=== PATIENT | female | born 1945 | race Caucasian/White ===

== ENCOUNTER 2016-10-29 20:02 | Inpatient (IN) | payer MEDICARE, OTHER ==
[~2016-10-29] VITALS: Ht 172.7 cm; Wt 96.6 kg
--- NOTE | 2016-10-29 19:55 | ED.REPORT ---
HPI-Chest Pain 40 and Over Date of Service Oct 29, 2016 ED Provider: Naun Hendrickson MD History of Present Illness: Patient accepted in transfer from [facility] as STEMI Patient is a 71 year old female with a history of hypertension who presents to the ED via EMS complaining of chest pain onset around 1830. Associated symptoms include pain that radiates into her back, between her shoulder blades and palpitations. Per EMS, the patient was given Heparin, ASA and nitro prior to arrival to the ED, which the patient reports took her pain from an 8/10 down to a 5/10. She denies leg swelling, shortness of breath, diaphoresis or nausea. The patient originally went to [facility] when the pain started and after having an abnormal EKG was brought to the ED for a possible STEMI. Nursing Notes Stated Complaint: STEMI Nursing Notes Reviewed: Yes ([employer], meds not reconciled) Allergies: Coded Allergies: Penicillins (Verified Allergy, Unknown, 10/29/16) Sulfa (Sulfonamide Antibiotics) (Verified Allergy, Unknown, 10/29/16) erythromycin base (Verified Allergy, Unknown, 10/29/16) General Time Seen by MD: 19:53 Chief Complaint Chest pain Hx Obtained From: Patient, EMS Arrived By: Ambulance Sudden in Onset?: Yes Onset Occurred: 1 - 4 hours ago Symptom Duration: Since onset Location: : Chest left Quality: Painful, Pressure Radiation: : Back (describes pain as stabbing) Severity: Current: Pain level 5 out of 10 Severity: Maximum: Pain level 8 out of 10 Similar Sx Previous: No Past Medical History Past Medical History h/u PUD years ago Reports: Hypertension, Denies: Coronary artery disease, Diabetes mellitus, Hyperlipidemia Past Surgical History Cholecystectomy Hysterectomy Appendectomy Bilateral cataract surgeries Smoking History Never Smoker Social History recently retired Alcohol Use: Denies alcohol use Other Social History: Ambulatory Status Independent Review of Systems Constitutional: Denies: Chills, Fever Respiratory: Denies: Dyspnea on exertion, Non-productive cough, Shortness of breath, Wheezing Cardiovascular: Reports: Chest pain, Palpitations GI: Denies: Nausea Musculoskeletal: Reports: Back pain, Denies: Extremity swelling Skin: Denies Diaphoresis, Denies Itching, Denies Rash Neurologic: Denies: Numbness, Weakness Complete sys rev & neg: except as marked. Physical Exam Initial Vital Signs Vital Signs (First) Date Time Temp Pulse Resp B/P Pulse Ox O2 Delivery O2 Flow Rate FiO2 10/29/16 20:09 112 16 172/95 96 Room Air 10/29/16 20:30 2 Initial VS: Reviewed General/Constitutional: Awake, Alert Respiratory / Chest: Atraumatic, Breath sounds NL, Breath sounds = bilat, No respiratory distress Cardiovascular: Regular rhythm, Heart sounds NL Heart Rate / Rhythm: Positive: Tachycardia Abdomen: Atraumatic, Soft, Non-tender Lower Extremity / Pelvis / MS: Atraumatic, Inspection NL, No edema good dp pulses Skin: Atraumatic, Color NL, No rash, Warm, Dry Neurologic: Oriented X3, Speech NL, No motor deficits, No sensory deficits Psychiatric: Affect NL, Mood NL Head / Eyes: Atraumatic, Normocephalic, PERRL, EOMI Upper Extremity / MS: Atraumatic, Inspection NL Interpretation & Diagnostics Interpretation & Diagnostics: Labs from [facility]: CBC WBC 8.1, hematocrit 40.3, platelet count of 225 Sodium 141, potassium low at 2.9, chloride 103, CO2 28, BUN 16, creatinine 0.9, glucose 176, total bili 0.6, AST 26, ALT 36, troponin #1 negative at less than 0.04 Lipase 61 albumin 4.7 Lab Results Interpretation Result Diagram: 10/29/162053 Test 10/29/16 20:54 D-Dimer < 0.50mg/L FEU (<0.50) Potassium Level 3.7mEq/L (3.5-5.2) Magnesium Level 1.9mg/dL (1.6-2.6) Troponin T 0.312ug/L (0.0-0.011) Lab Results Interpretation: Repeat potassium 3.7, up from 2.9 Repeat troponin now elevated and positive ECG Interpretation ECG Interpretation: Faxed EKG from [facility]: Sinus tachycardia 113, nose borderline ST segment elevation in V1, there is ST segment elevation in V2 and possibly V3 , it is difficult to tell if there is changes in leads 3-overall to an equivocal EKG, but this clinical presentation is concerning, prior EKG available for comparison Interpreted by: ED physician Repeat ECG: Repeat ECG ch from prior (improved) X-Ray Chest Interpretation Chest Xray Interpretation: IMPRESSION: No acute disease. Scattered scarring/atelectasis Dictated by: Ruddy Briggs M.D. on 10/29/2016 at 21:27 Approved by: Ruddy Briggs M.D. on 10/29/2016 at 21:28 View: Portable, 1 view Interpretation / Wet Read by: Interpret - Radiologist CT Chest Interpretation IMPRESSION: Complex cystic versus solid right renal lesion, suspicious for early renal cell carcinoma until proven otherwise. Recommend nonemergent urological consultation, and continued surveillance with CT. A dedicated renal protocol contrast-enhanced CT or MRI could be performed in the nonemergent setting 7 mm left adrenal nodule which is too small to characterize. This should also be followed up with continued CT surveillance, and if reaches 1 cm in size consider dedicated adrenal protocol MRI for further assessment. Indeterminate left upper lobe pulmonary nodule. Recommend followup with noncontrast chest CT in 6 months (based on size criteria) No evidence of aortic dissection Hepatic steatosis. No acute abnormality. Bibasilar scarring/atelectasis. Dictated by: Ruddy Briggs M.D. on 10/29/2016 at 21:06 Approved by: Ruddy Briggs M.D. on 10/29/2016 at 21:17 Interpretation / Wet Read by: Interpret - Radiologist Re-Eval/Medical Decision Med Decision/Clinical Course This is a 71-year-old female transferred from [facility] with a concern for ST segment elevation SD. Cardiology and the Communicable Disease Specialist activated prior to patient arrival. On arrival the patient reports sudden onset of substernal chest pressure and shortness of breath 5 minutes before going to the ED,'s rated an 8 out of 10, trace nausea and no diaphoresis. She has no prior history of coronary disease, but does have a history of hypertension was significantly hypertensive on arrival to the ED. She had EKG that was suspicious, but not definitive for ST segment elevation, received aspirin, nitroglycerin, heparin and was transferred. She received morphine and additional nitroglycerin en route, but arrives still having ongoing chest discomfort. She is still significantly hypertensive. Overall the patient's well. She does report some radiation into the back, increasing the possibility of a dissection as potential pathology. Her repeat EKG here does not reveal a definitive ST segment elevation SD, but cardiology was present at the bedside and examiner. She received additional nitroglycerin , pain medicine, and was started on nitro drip-but continued to have ongoing pain. A CT angiogram for dissection was obtained and was negative for dissection or clear causative etiology, but an incidental cystic mass in the right kidney was noted with renal CA in the differential and an outpatient workup may need to be considered for this. However the patient continued ongoing substernal chest pressure, and the presentation clinically remains concerning for possible cardiac etiology. With the patient's ongoing symptoms, the patient being taken to the Communicable Disease Specialist for further management and evaluation. Labs from the outside hospital were also notable for hypokalemia, the patient is on a diuretic-and was given potassium supplementation in the department. After being taken to the medical laboratory technicians, the patient's repeat troponin is returned and is markedly positive, suggesting NSTEMI Source of Hx: Old records, EMS Time of Eval: 20:58 Re-Evaluation/Progress Note: Discussed plan for admit. Patient understands and agrees to plan. All questions were addressed. Consultation #1: Referral / Consult Name: Chris Taylor MD Consulted With: Cardiology Call Returned at: 19:40 Printed Products Assembler: Will see patient Note: Case discussed based on Johnniey ED report, medical laboratory technicians activated RN CARDIAC Consultation #2: Referral / Consult Name: Chris Taylor MD Consulted With: Cardiology Call Returned at: 20:56 Printed Products Assembler: Will see patient, Agrees with eval, Agrees with plan, Requested medical laboratory technicians, Accepts admit Differential Diagnosis: Positive: Chest pain, acute, Negative: Dysrhythmia, Gun shot wound chest, Peptic ulcer disease, Pericarditis, Pneumomediastinum, Pneumonia, Pneumothorax, Pulmonary edema, Pulmonary embolism Counseled Regarding: Diagnosis, Lab results, Need for admission Discharge & Departure Primary Impression: Chest pain Chest pain type: unspecified Qualified Code: R07.9 - Chest pain, unspecified Additional Impressions: Hypokalemia Hypertension Hypertension type: unspecified secondary hypertension Qualified Code: I15.9 - Secondary hypertension, unspecified Renal mass NSTEMI (non-ST elevated myocardial infarction) Disposition: ADMITTED TO HOSPITAL Discharge Condition All VS Reviewed: Yes Condition: Stable Referrals: NOPCP (PCP) Crit Care Except Billable Proc Time Spent: 30-74 minutes Services Performed: Patient management by me, Time spent at bedside, Reviewing test results, Reviewing imaging, Discussing patient care, Documentation in record Scribe Attestation Portions of this note were transcribed by Addis Mclaughlin. IDr. Hendrickson personally performed the history, physical exam and medical decision-making; I reviewed and confirmed the accuracy of the information in the transcribed note. Signed by: Addis Sawyer, 10/29/16 Naun Hendrickson MD Oct 29, 2016 19:55 Heidy Mclaughlin Oct 29, 2016 20:20
[~2016-10-29 20:02] MED LIST: Heparin 1,000 Unit/mL 10 mL Inj ONE; Heparin 1,000 Units/500 mL NS Premix IV ONE; Heparin 10,000 Unit/1,000 mL NS Premix IV ONE; Nitroglycerin 50,000 mcg/250 mL D5W Premix IV ONE
[2016-10-29 20:09] VITALS: BP 172/95; PULSE 112; RESP 16; O2SAT 96
[2016-10-29] MEDS: Nitroglycerin 50 mg/250 mL D5W 50,000 MCG in IV Premix 1 EACH IV SCH (20:17)
[2016-10-29] MEDS ORDERED: Nitroglycerin 50,000 mcg/250 mL D5W Premix IV ONE (20:19)
[2016-10-29] MEDS ORDERED: HYDROmorphone 0.5 mg/0.5 mL iSecure Syringe IVPUSH ONE (20:20)
[2016-10-29 20:30] VITALS: BP 151/93; PULSE 108; RESP 19; O2SAT 96
[2016-10-29 20:59] VITALS: BP 131/98; PULSE 105; RESP 20; O2SAT 95
[2016-10-29] MEDS: Potassium Chloride 20 mEq/15 mL 15mL Oral Soln TUBE SCH ×2 (21:03→22:30)
[2016-10-29] MEDS ORDERED: fentaNYL-PF 50 mCg/mL 2 mL Inj ONE (21:12)
[2016-10-29 21:14] VITALS: BP 131/98; PULSE 105; RESP 20; O2SAT 95
--- NOTE | 2016-10-29 21:19 | DRSVH ---
PROCEDURE: CT ANG CHEST/ABD W/WO CONTRAST ([id number]) INDICATIONS: Dissection TECHNIQUE: Precontrast 5 mm thick sections acquired from the lung apices to the iliac crests. After the adminis tration of intravenous contrast, 3 mm thick sections again acquired from the lung apices to the iliac crests. 3-dimensional maximum intensity projection (MIP) oblique sagittal and coronal reformats wer e then acquired, and/or 3-dimensional volume rendering reformats. For radiation dose reduction, the following was used: automated exposure control. COMPARISON: None. FINDINGS: Image quality: Excellent. AORTA: Aorta is within normal limits. No aneurysm or evidence of dissection. No periaortic hemorrhage. CHEST: Lungs and pleura: Scattered scarring/atelectasis predominantly in the lung bases. 5 mm left upper lob e pulmonary nodule seen on image 33 series 9, technically indeterminate. No pleural effusions or pne umothorax. Central and peripheral airways are patent and normal in caliber. Mediastinum: Heart size is normal. No pericardial effusion. No mediastinal or hilar adenopathy by size criteria. Central pulmonary arteries are normal in size. Esophagus is normal in caliber. No h iatal hernias. Bones and chest wall: No axillary adenopathy by size criteria. Thyroid gland negative. No suspicio us bony lesions. No vertebral body compression fractures. ABDOMEN: Vasculature: Celiac trunk and mesenteric arteries are patent. Renal arteries are also patent. Solid organs: Liver and spleen are normal in size. Gallbladder surgically absent. Biliary system i s non dilated. Pancreas enhances normally. There is a nonspecific 7 mm left adrenal nodule on image 101, indeterminate.. There is a 1 cm right renal cortical lesion, which may be solid or complex cysti c in nature Peritoneum and bowel: No free fluid or air. Bowel loops are normal in caliber and wall thickness. Colonic diverticulosis is seen. No evidence of acute diverticulitis. Nodes and vessels: No retroperitoneal or mesenteric adenopathy by size criteria. Inferior vena cava is normal in morphology. Bones: No suspicious bony lesions. No vertebral body compression fractures. L2 and L3 vertebral dami dy lesions with central trabeculations presumably hemangiomas Miscellaneous: No ventral hernias. IMPRESSION: Complex cystic versus solid right renal lesion, suspicious for early renal cell carcinoma until prove n otherwise. Recommend nonemergent urological consultation, and continued surveillance with CT. A ded icated renal protocol contrast-enhanced CT or MRI could be performed in the nonemergent setting 7 mm left adrenal nodule which is too small to characterize. This should also be followed up with con tinued CT surveillance, and if reaches 1 cm in size consider dedicated adrenal protocol MRI for furth er assessment. Indeterminate left upper lobe pulmonary nodule. Recommend followup with noncontrast chest CT in 6 mon ths (based on size criteria) No evidence of aortic dissection Hepatic steatosis. No acute abnormality. Bibasilar scarring/atelectasis. Dictated by: Ruddy Briggs M.D. on 10/29/2016 at 21:06 Approved by: Ruddy Briggs M.D. on 10/29/2016 at 21:17
--- NOTE | 2016-10-29 21:30 | DRSVH ---
PROCEDURE: X-RAY CHEST ONE VIEW, PORTABLE ([id number]) INDICATIONS: CHEST PAIN TECHNIQUE: One view of the chest was acquired. COMPARISON: None. FINDINGS: Surgical changes and devices: None. Lungs and pleura: No pleural effusions or pneumothorax. Lungs are clear. There is diffuse/interstit ial change. Elevation of the right hemidiaphragm Mediastinum: Mediastinal contours appear normal. Heart size is normal. Bones and chest wall: No suspicious bony lesions. Overlying soft tissues appear unremarkable. IMPRESSION: No acute disease. Scattered scarring/atelectasis Dictated by: Ruddy Briggs M.D. on 10/29/2016 at 21:27 Approved by: Ruddy Briggs M.D. on 10/29/2016 at 21:28
[2016-10-29 21:40] LABS: Magnesium 1.9 mg/dL (1.6-2.6)
[2016-10-29 21:41] LABS: TROPONIN T 0.312 ug/L (0.0-0.011)
[2016-10-29] MEDS ORDERED: Heparin 10,000 Unit/1,000 mL NS Premix IV ONE ×2 (21:42→22:59)
[2016-10-29] MEDS ORDERED: Heparin 1,000 Unit/mL 10 mL Inj ONE (22:38)
[2016-10-29] MEDS ORDERED: Eptifibatide 20,000 mCg/10 mL Inj ONE (23:28)
[2016-10-30] VITALS (37 sets, daily range): BP systolic 102–142; BP diastolic 54–95; PULSE 79–101; RESP 11–21; O2SAT 90–96
--- NOTE | 2016-10-30 00:30 | NUR ---
Arrived on the floor around 0030. Integrillin, Nitro gtt and NS infusing. Noted hematoma on right groin as per report. Femstop started on the floor by Assistant Designer crew. Pulses are palpable. Pt c/o bladder spasms. No c/o chest pain/back pain.
[2016-10-30] MEDS ORDERED: 0.9% Sodium Chloride 250 ML IV PRN (00:57)
[2016-10-30] MEDS ORDERED: 0.9% Sodium Chloride 1,000 ML IV PRN (00:57)
[2016-10-30] MEDS ORDERED: Ondansetron 2 mg/mL 2 mL Inj IVPUSH PRN ×2 (01:00→02:05)
--- NOTE | 2016-10-30 01:03 | CS94 ---
[address] [address] DIAGNOSTIC CARDIAC CATHETERIZATION PATIENT: SENG NAVAS : 1945 MR#: [id number] ADMIT: 10/29/2016 JOB ID: [id number] SERVICE DATE: 10/29/2016. PROCEDURE NOTE/CARDIAC CATHETERIZATION LABORATORY: CHEFS: Chris Taylor MD. PROCEDURES: 1. Coronary angiogram, emergent. 2. Left heart catheterization (LHC): Pressure measurement. 3. Percutaneous coronary intervention (PCI): a. Drug-eluting stents (CARMEN) of proximal and mid. INCOMPLETE DICTATION: Dictation ends here.
[2016-10-30 01:38] LABS: APPEARANCE,URINE SLIGHTLY CLOUDY (CLEAR,HAZY); COLOR,URINE RED (YELLOW); OCCULT BLOOD,URINE LARGE (NEGATIVE); UROBILINOGEN,URINE NORMAL (NORMAL)
[2016-10-30] MEDS ORDERED: Polyethylene Glycol (PEG) 17 Gm Powder PO PRN (02:05)
[2016-10-30] MEDS ORDERED: Alum-Mag Hydrox-Simeth 30 mL Suspension PO PRN ×2 (02:05→12:25)
--- NOTE | 2016-10-30 02:59 | NUR ---
Admission Admission done and updated record. Pt oriented to use of call light and policy with understanding noted. Booklet r/t Angioplasty/stents given to pt. Med rec not updated due to pts poor recall at this time. Am nurse made aware of need to update.
--- NOTE | 2016-10-30 03:39 | PCM.HPMED ---
Subjective Date of Service Oct 30, 2016 Primary Provider: Admitting Physician: Chris Taylor MD Primary Care Physician: Nopoumar Attending Physician: Chris Taylor MD Chief Complaint: Chest pain History of Present Illness: Patient is a 71-year-old female with a history of hypertension who presented to [facility] complaining of sudden onset of substernal chest pressure with associated shortness of breath 5 minutes before going to the ED. She described the chest pressure as an 8 out of 10 substernal chest pressure radiating to her back, with some nausea but no diaphoresis. EKG at [facility] did not show definitive elevation and she received aspirin, nitroglycerin, heparin and was transferred transported to [facility] for intervention. She has no prior history of coronary disease. She denies leg swelling, shortness of breath , diaphoresis or nausea. At [facility], CBC was unremarkable, K was 2.9, Cr 0.9, glucose 176, troponin was negative. In the [facility] ED, HR was 112, BP was 172/95, O2 96 on room air. Repeat K was 3.7, repeat troponin was 0.312. EKG showed ST elevation in V1 - V3. CXR was negative. CT chest/abd showed a 7 mm left adrenal nodule, indeterminate left upper lobe pulmonary nodule, no evidence of aortic dissection, hepatic steatosis. She continued to complain of significant ongoing substernal chest pressure during the transfer and in the [facility] ED, and was brought to the cathode ray tube salvage processor. Drug-eluting stents were placed in the proximal and mid LAD. Review of Systems: Comprehensive review of systems conducted and was negative except for the pertinent positives listed above. Allergies Coded Allergies: Sulfa (Sulfonamide Antibiotics) (Verified Allergy, Severe, Hives, 10/30/16) Penicillins (Verified Allergy, Intermediate, Anaphylaxis, 10/30/16) erythromycin base (Verified Allergy, Intermediate, 10/30/16) fatigue soy (Verified Adverse Reaction, Unknown, 10/30/16) Inflammation Uncoded Allergies: Dairy (Adverse Reaction, Unknown, 10/30/16) Diarrhea Home Medications Medications not reconciled PMH Hypertension Hx of PUD years ago Surgical History Cholecystectomy Hysterectomy Appendectomy Bilateral cataract surgeries Family History Mother at 94 of Alzheimer's. Had pacemaker Father had 3 strokes at 94 2 maternal uncles with diabetes mellitus Social History Hx Alcohol Use: No Hx Substance Use: No Smoking Status: Never Smoker Exam Vital Signs Vital Sign - Last Date Time Temp Pulse Resp B/P Pulse Ox O2 Delivery O2 Flow Rate FiO2 10/30/16 00:42 Supplement Oxygen 10/29/16 21:14 105 20 131/98 95 2 Exam General: Alert, Oriented X3, Cooperative, No acute distress Head: Normocephalic, atraumatic. External ears normal. Eyes: PERRLA, EOMI. Anicteric sclerae. Mouth: Mouth normal, Mucous membranes moist/pink Neck: Neck supple with full range of motion. Chest& Lungs: Clear to auscultation bilaterally with no crackles, wheezes, or rhonchi. Cardiovascular: Regular rate/rhythm, Normal S1, Normal S2, No murmurs/rubs/ gallops Abdomen: Non-tender, Non-distended, No masses, Normoactive bowel tones, Soft Musculoskeletal: Normal range of motion Extremities: No cyanosis/clubbing/edema bilaterally. Hematoma at right groin catheter site. Neurological: Grossly neurologically intact. Normal speech Lab and Diagnostics Result Diagram: 10/29/162053 Assessment & Plan Patient is a 71-year-old female with a history of hypertension who presented to [facility] complaining of sudden onset of substernal chest pressure with associated shortness of breath. Admitted for STEMI. Acute ST elevation [place]. Present on admission. - Pt presents with substernal chest pressure, ST elevation in leads V1-3, and elevated troponin. Cath revealed thrombotic lesions in the proximal and mid LAD , which were stented. - Continue Aspirin and Plavix, with Integrilin - Atorvastatin 80 mg qhs - Morphine and Nitro PRN - Echocardiogram in AM - Monitor on telemetry - Monitor I/O and daily standing weights Hypertension, acute on chronic. Present on admission. Improved. - BP 172/95 on admission. Improved to 131/98. - Continue to monitor Hyperglycemia, acute. - Pt has no hx of DM. BG 176 at [facility]. 228 at [facility]. - A1c ordered. - Humalog medium dose correctional scale. Multiple nodular lesions. - CT chest/abd showed right renal lesion suspicious for early renal cell carcinoma, a 7 mm left adrenal nodule, and an indeterminate left upper lobe pulmonary nodule. - Outpatient urology consultation for right renal lesion - Follow up chest/abd CT in 6 months - Med Rec not complete. Reconcile in AM with pharmacy and complete. - Bowel regimen as needed - Antiemetic as needed Patient is admitted under inpatient status with expected length of stay greater than 2 midnights due to severity of presenting symptoms, risk of adverse event, and complexity of treatment plan. Resuscitation Status: CPR: Attempt Resuscitation Attending Statement The patient was seen and examined together with Dr. Kessler on 10/29 and I agree with the history, exam and plan as outlined in the note above. Boy Kessler Oct 30, 2016 01:47 Buster Gamez MD Oct 30, 2016 06:52
[2016-10-30 04:29] LABS: BASOPHILS % (AUTO) 0.1 % (0-3); EOSINOPHILS % (AUTO) 0 % (0-5); MONOCYTES % (AUTO) 4.5 % (4-12); Mean Corpuscular Hemoglobin 28.3 pg (27.0-35.0); Mean Corpuscular Volume 84.4 fL (81-100); Platelet Count 201 bil/L (150-400)
[2016-10-30] MEDS: EPTIFIBATIDE IV SCH ×2 (05:22→17:23)
[2016-10-30] MEDS: [UNRECOGNIZED DRUG - OTHER] IV SCH ×2 (05:22→17:23)
[2016-10-30 05:25] LABS: TROPONIN T 0.609 ug/L (0.0-0.011)
[2016-10-30] MEDS ORDERED: Dextrose 10% 250 ML IV PRN (06:03)
[2016-10-30] MEDS ORDERED: Glucose 40% Oral Gel 15 Gm Tube PO PRN (06:05)
--- NOTE | 2016-10-30 07:49 | NUR ---
Hematoma/PSVT/HR/Anxiety Pt arrived on the floor with known hematoma. animal laboratory helper crew started Femstop during report. Pt c/o bladder spasm/discomfort. Pulses are palpable. Pt denies any chest pain or back pain during admission. Dr Taylor assessed the hematoma and removed Femstop. Manual hold done by staff for 40 mins as ordered by Dr Taylor. Hematoma reduced in size. Right groin site soft to touch. Dressing has some small oozing since new dressing applied. Pulses are 2+. Pt had a 6 sec PSVT. She was laying in bed without any c/o pain or discomfort. Md aware. Telemetry has been SR in 80-90s. Heart rate noted to trend up to low 100s this am. Pt c/o slight discomfort on her back muscular from being bed rest. Morphine 1mg IV given with report of relief. Hr noted to be back down to 90s. Pt reports also having history of anxiety and PTSD and feeling slightly anxious this am. Pt aware of NPO status and bed rest status at this time. Total urinary output this am 863 cc.
[2016-10-30] MEDS: Insulin LISPRO 300 Unit/3 mL Inj SUBQ SCH ×4 (08:00→22:00)
[2016-10-30] MEDS ORDERED: BENA1TAB12 PO (10:26)
[2016-10-30] MEDS ORDERED: CHOL200025 PO (10:28)
[2016-10-30] MEDS ORDERED: OMEG500C PO (10:28)
[2016-10-30] MEDS ORDERED: LACT1CAP73 PO (10:28)
[2016-10-30] MEDS ORDERED: Heparin 1,000 Units/500 mL NS Premix IV ONE (10:30)
[2016-10-30] MEDS ORDERED: Heparin 10,000 Unit/1,000 mL NS Premix IV ONE ×2 (10:31→10:53)
[2016-10-30] MEDS ORDERED: Nitroglycerin 50,000 mcg/250 mL D5W Premix IV ONE (10:31)
[2016-10-30] MEDS ORDERED: Ondansetron 2 mg/mL 2 mL Inj ONE (10:42)
[2016-10-30] MEDS ORDERED: EPTIFIBATIDE IV ONE ×2 (10:45→12:20)
[2016-10-30] MEDS ORDERED: [UNRECOGNIZED DRUG - OTHER] IV ONE (10:45)
[2016-10-30] MEDS ORDERED: fentaNYL-PF 50 mCg/mL 2 mL Inj ONE (10:47)
[2016-10-30] MEDS ORDERED: Eptifibatide 20,000 mCg/10 mL Inj ONE ×2 (10:54→12:21)
--- NOTE | 2016-10-30 11:11 | NUR ---
Chest pain: Tele SR 90s, VSS, O2 sats 95% on 2L NC. At 0930, pt reported chest pain that was similar to last night's pain. ECG obtained, Morphine given, Nitro gtt titrated, pain initially improved but subsequently worsened. Morphine given again, Nitro gtt titrated, Hospitalist and Straightening Press Operator notified. MDs at bedside, pt left unit at 1038 to return to yard laborer. aware.
[2016-10-30] MEDS ORDERED: Famotidine 20 mg/50 mL NS Premix IV ONE (11:40)
--- NOTE | 2016-10-30 11:56 | PCM.PNMED ---
Subjective Date of Service Oct 30, 2016 Subjective Patient is a 71-year-old female with a history of hypertension who presented to [facility] complaining of sudden onset of substernal chest pressure with associated shortness of breath 5 minutes before going to the ED. She described the chest pressure as an 8 out of 10 substernal chest pressure radiating to her back, with some nausea but no diaphoresis. EKG at [facility] did not show definitive elevation and she received aspirin, nitroglycerin, heparin and was transferred transported to [facility] for intervention. She has no prior history of coronary disease. She denies leg swelling, shortness of breath , diaphoresis or nausea. Upon interview with the patient this morning, she is quite anxious and reports increased chest pain, similar in location and character to before however increased quite substantially and now with radiation across the chest from left to right and neck radiation. She also reports a SERRANO and left shoulder pain worse with motion of her left arm. During the interview Dr. Taylor decided to re-cath her stat. Exam Vital Signs Vital Sign - Last Date Time Temp Pulse Resp B/P Pulse Ox O2 Delivery O2 Flow Rate FiO2 10/30/16 10:19 101 15 141/73 92 Nasal Cannula 2.00 10/30/16 08:20 36.7 Intake and Output 10/29/16 10/29/16 10/30/16 Cumulative From/Thru 15:00 23:00 07:00 10/29/16 20:09 - 10/30/16 06:01 Intake Total 1057 ml 1057 ml Output Total 885 ml 885 ml Balance 172 ml 172 ml Intake Oral 0 ml 0 ml IV Total 1057 ml 1057 ml Output Urine Total 885 ml 885 ml # Bowel Movements 0 0 Exam General: Alert, Oriented X3, Cooperative, with acute distress and anxiety Head: Normocephalic, atraumatic. External ears normal. Eyes: PERRLA, EOMI. Anicteric sclerae. Mouth: Mouth normal, Mucous membranes moist/pink Neck: Neck supple with full range of motion. Chest& Lungs: Clear to auscultation bilaterally with no crackles, wheezes, or rhonchi. Cardiovascular: Regular rate/rhythm, Normal S1, Normal S2, No murmurs/rubs/ gallops Abdomen: Non-tender, Non-distended, No masses, Normoactive bowel tones, Soft Musculoskeletal: Normal range of motion Extremities: No cyanosis/clubbing/edema bilaterally. Hematoma at right groin catheter site. Neurological: Grossly neurologically intact. Normal speech IVs and Medications Medications Reviewed: Medications were reviewed in detail Lab and Diagnostics Result Diagram: 10/30/16 0355 10/30/16 0855 Assessment & Plan Patient is a 71-year-old female with a history of hypertension who presented to [facility] complaining of sudden onset of substernal chest pressure with associated shortness of breath. Admitted for STEMI. Acute ST elevation OR. Present on admission. - Pt presents with substernal chest pressure, ST elevation in leads V1-3, and elevated troponin. Cath revealed thrombotic lesions in the proximal and mid LAD , which were stented x3. - Continue Aspirin and Plavix, with Integrilin - Atorvastatin 80 mg qhs - Morphine and Nitro PRN - Monitor on telemetry - Monitor I/O and daily standing weights - Re-cath 10/30 due to increased pain following catheterzation this morning. - EKG reviewed and showed V1-V6 T-wave inversions since 1 am's EKG. Hypertension, acute on chronic. Present on admission. Improved. - BP 172/95 on admission. Improved to 131/98. - Continue to monitor Hyperglycemia, acute. - Pt has no hx of DM. BG 176 at [facility]. 228 at [facility]. - A1c ordered. - Humalog medium dose correctional scale. Multiple nodular lesions. - CT chest/abd showed right renal lesion suspicious for early renal cell carcinoma, a 7 mm left adrenal nodule, and an indeterminate left upper lobe pulmonary nodule. - Outpatient urology consultation for right renal lesion - Follow up chest/abd CT in 6 months - Med Rec not complete. Reconcile in AM with pharmacy and complete. - Bowel regimen as needed - Antiemetic as needed Patient is admitted under inpatient status with expected length of stay greater than 2 midnights due to severity of presenting symptoms, risk of adverse event, and complexity of treatment plan. Pain Evaluation: Adequate Pain Control Resuscitation Status: CPR: Attempt Resuscitation Time spent 60 minutes Attending Statement I interviewed and examined the patient on rounds today. Recurrent chest pain symptoms without further EKG changes. I agree with the assessment and plan as stated above. ANNETTA CUEVAS DO Oct 30, 2016 11:56 Josef Huang MD Oct 31, 2016 07:13
[2016-10-30] MEDS ORDERED: [UNRECOGNIZED DRUG - OTHER] IV ONE (12:20)
--- NOTE | 2016-10-30 12:51 | CS94 ---
[address] [address] DIAGNOSTIC CARDIAC CATHETERIZATION PATIENT: SENG NAVAS : 1945 MR#: [id number] ADMIT: 10/29/2016 JOB ID: [id number] SERVICE DATE: 10/30/2016 PROCEDURE NOTE -- CARDIAC CATHETERIZATION LABORATORY: DATE OF PROCEDURE: , October 30, 2016. BEAM RACKER: Chris Taylor MD. PROCEDURE: 1. Coronary angiogram, emergent. 2. Left heart catheterization (LHC): Pressure measurement. 3. Percutaneous coronary intervention (PCI): a. Drug-eluting stents (CARMEN) of proximal and mid. CLINICAL DETAILS: This 71-year-old woman returns to the cardiac catheterization laboratory emergently today for coronary angiogram because of one-hour onset of moderate to severe -- 7-8/10 -- retrosternal chest discomfort and intrascapular back discomfort. This was similar to the discomfort she had 16 hours ago when she was admitted emergently and had emergent coronary angiogram that showed a subtotal proximal and middle LAD lesion that was stented. The current procedure is performed to reassess the coronary anatomy. At the first procedure she had three Xience stents placed in the proximal and mid LAD. During the procedure she had spontaneous development of intrastent thrombus despite adequate anticoagulation with heparin, as well as aspirin and Plavix. This thrombus resolved with Integrelin, which was given intracoronary and intravenous including ongoing infusion. At the present time her pain was not much relieved by increasing NTG IV drip from 10-15 mcg/min. ECG shows nonspecific ST-T wave changes with anterior T-wave inversions that are overall similar to her ECG post procedure. Last night, there is no ST elevation. PROCEDURAL DETAILS: I evaluated her emergently in the CCU and spoke with her and her regarding the findings, impressions and management considerations including the recommendation for emergent coronary angiogram to assess the status of the stent and guide therapeutic options including medical therapy, repeat PCI, or coronary bypass surgery, if needed. We rediscussed consent similar our discussion last night and after questions and that discussion, she signed informed consent to proceed. She was brought immediately to the cardiac catheterization laboratory N.P.O. where she was prepped sterilely and draped. CORONARY ANGIOGRAM: Arterial access was obtained in the left common femoral artery without difficulty using fluoroscopic localization over the femoral head, as well as lidocaine local anesthesia; and modified Seldinger technique to insert a 10 cm, 6-Ukrainian side-arm sheath. Catheters were advanced and exchanged over a long 0.035-inch J-tipped guidewire. The left coronary artery was engaged with a Voda 3.5 guide catheter. The right coronary artery was engaged with a 6-Ukrainian JR-4 diagnostic catheter. LV not entered. We monitored her for a period of time in the catheterization laboratory and took repeat angiograms of the left coronary to be sure of no change in the stent. Procedure without difficulty. The patient tolerated the procedure well. No complication. A side-arm angiogram shows adequate access in the LFA for closure device; and arterial hemostasis was obtained without difficulty with a 6-Ukrainian Angio-Seal device. The patient became chest pain free during the procedure; and she was transferred back to the CCU from the catheterization laboratory in stable condition for ongoing care including by the primary hospitalist service. I discussed the procedure findings and management considerations with the patient; later with her ; and with the hospitalist team (Dr. Huang). FINDINGS: 1. LMCA: Intact. The left main coronary artery is moderately short; and has moderate atherosclerotic plaquing without angiographically significant narrowing. 2. LAD: Intact. Stent intact. The left anterior descending coronary artery has no significant atherosclerotic narrowing. The stented segment appears intact, widely open and, importantly, with MARY BETH-3 flow, which actually appears improved since the procedure last night. The stent does have some areas of haziness but no discreet lesions. In view of her very favorable status and the favorable appearance of the stent, I elected not to intervene mechanically further. 3. LCX: Intact. A large circumflex without angiographic narrowing. 4. RCA: Dominant. Intact. CONCLUSIONS: Coronary angiogram -- stent intact with MARY BETH-3 flow. RECOMMENDATIONS: 1. ASA -- indefinitely. 2. Initiate prasugrel -- plan one year if well tolerated including with ongoing cardiology followup. I discussed with the patient and her not to stop prasugrel for any reason without immediate cardiology consultation. 3. The stent appears overall excellent despite some haziness. In view of her chest pain free status and FLOR-3 flow, no indication to intervene mechanically. At this point, will also consider other causes of her discomfort including GI.
[2016-10-30] MEDS: 0.9% Sodium Chloride 1,000 ML IV SCH ×2 (13:30→21:30)
--- NOTE | 2016-10-30 15:50 | DRSVH ---
[facility] [address] [place] [address] Echocardiogram Report Name: SENG NAVAS Date: 10/05 Height: 68 in Hospital Exam Location: [facility] Weight: 213 lb Gender: Other BSA: 2.1 m2 : 1945 Age: 71 yrs BP: 126/70 mmHg Reason For Study: DC-Recent Ordering Physician: Performed By: [facility] Staff Interpretation Summary There is no thrombus. The ejection fraction is estimated to be 35-40%. Apical akinesis with a hyperdynamic mid cavity of the left ventricle. There is no significant valvular heart disease. Procedure: A two-dimensional transthoracic echocardiogram with color flow and Doppler was performed. The study quality was technically adequate. A contrast injection of Definity was performed to improve assessment for apical thrombus. The patient was in normal sinus rhythm during the exam. Left Ventricle: The left ventricle is normal in size. There is mild asymmetric left ventricular hypertrophy. There is no thrombus. The ejection fraction is estimated to be 35-40%. Apical akinesis with a hyperdynamic mid cavity of the left ventricle. Right Ventricle: The right ventricle is normal in size and function. Atria: The left atrium is mildly dilated. The right atrium is normal in size. The interatrial septum is intact with no evidence for an atrial septal defect. Mitral Valve: The mitral valve is grossly normal. There is trace mitral regurgitation. Aortic Valve: The aortic valve is trileaflet. The aortic valve opens well. No aortic regurgitation is present. Tricuspid Valve: The tricuspid valve is normal in structure and function. Right ventricular systolic pressure is estimated to be 17 mmHg plus the clinically estimated CVP which cannot be estimated on this exam. There is a trace or physiologic amount of tricuspid regurgitation. Pulmonic Valve: The pulmonic valve is normal in structure and function. There is no pulmonic valvular regurgitation. Great Vessels: The aortic root is normal size. The ascending aorta is mildly enlarged. The pulmonary artery is not well visualized, but is probably normal size. The inferior vena cava was not well visualized. Pericardium/ Pleura There is no pericardial effusion. There is no pleural effusion. MMode/2D Measurements & Calculations LVIDd: 4.5 cm RA long axis LVOT diam LVIDs: 3.1 cm LA A2 area: 12.6 cm FS: 30.8 % LA A4 area: 15.0 cm RA area Ao root diam IVSd: 1.3 cm LA length (vol): 4.5 cm LVPWd: 0.89 cm LA vol: 35.5 ml : 15.4 cm asc Aorta LA vol index RA vol: 45.6 mlDiam: 3.6 cm RA : 16.9 ml/m2 : 21.7 mm2 LV rodriguez. diameter/BSA LV sys. diameter/BSA RVD1 (basal) TAPSE: 1.8 cm (cm/m^2): 2.1 (cm/m^2): 1.5 Doppler Measurements & Calculations Ao V2 max MV E max edward MV E/A: 0.56 TR max edward : 118.0 cm/sec : 42.7 cm/sec Med Peak E' Edward : 206.9 cm/sec Ao max PG MV A max edward TR max PG : 5.6 mmHg : 76.3 cm/sec E/E' med: 7.7 : 17.1 mmHg Ao mean PG MV P1/2t: 30.6 msec Lat Peak E' Edward PA V2 max : 98.6 cm/sec LVOT Max Edward E/E' lat: 5.8 PA mean PG : 73.4 cm/sec E/e' average: 6.7 GERARD(I,D): 3.2 cm PA Accel Time sev ratio : 0.13 sec MV dec time MV P1/2t max edward Ao V2 mean LV V1 max PG : 0.10 sec : 92.5 cm/sec Ao V2 VTI: 22.1 cm LV V1 VTI MVA(P1/2t): 7.2 cm2 : 15.4 cm GERARD(V,D): 2.9 cm2 PA V2 mean GERARD indexed to BSA : 68.9 cm/sec (cm^2/m^2): 1.5 PA pr(Accel) : 19.8 mmHg Electronically signed by: Tristan Hurtado on Reading Physician:10/30/2016 03:50 PM
--- NOTE | 2016-10-30 18:42 | NUR ---
S/p heart cath: Pt returned from carpenter/labor at 1210, no intervention, L groin site stable. See post heart cath flow sheet for details. R groin site from yesterday's heart cath unchanged from initial assessment. Integrillin gtt to continue until [address] Taylor. Nitro gtt being titrated off, pt tolerating well. After bedrest completed, pt able to dangle at EOB with SBA, stood briefly with 1p assist. C/o dizziness while sitting and standing. Torre cath in place. at bedside, updated on plan of care, care ongoing.
[2016-10-30] MEDS: Nitroglycerin 50 mg/250 mL D5W 50,000 MCG in IV Premix 1 EACH IV SCH (20:17)
[2016-10-31] VITALS (10 sets, daily range): BP systolic 119–168; BP diastolic 61–91; PULSE 75–114; RESP 13–22; O2SAT 91–98
[2016-10-31 03:40] LABS: Mean Corpuscular Hemoglobin 27.8 pg (27.0-35.0)
--- NOTE | 2016-10-31 05:28 | NUR ---
Telemetry Pt alert and oriented x3. Tolerated dangling at bedside and standing up without any discomfort. Torre catheter discontinued. Pt voiding per BSC. No c/o chest pain or back pain. Weaned off Nitroglycerin drip. C/o general ache and reported pain relief from Tylenol. 02sat in mid 90s on RA. Saline lock and taking po well. Bilateral groin with noted bruising. Right groin soft and no bleeding noted. Left groin soft to touch and no hematoma or bleeding noted. Pulses are palpable.
[2016-10-31] MEDS: Pantoprazole 40 mg ER24 Tablet PO SCH (05:50)
[2016-10-31] MEDS: Insulin LISPRO 300 Unit/3 mL Inj SUBQ SCH ×4 (08:31→22:00)
--- NOTE | 2016-10-31 12:45 | NUR ---
Social Work: Initial Assessment/Multidisciplinary Rounds D: Per EMR review, pt is a 71 year old female admitted for STEMI. Pt is Medicare with [employer] insurance; pt has no LTC or VA benefits. PCP is Ananya Oshea. NOK is Néstor Reese, spouse, . Advanced directives completed- OPEN SOAPER TENDER requested copy for chart. Readmit score is low, 1/. Pt discussed in am rounds. Pt is improving. Awaiting for cardiology recommendations prior to d/c. Capacity for self care discussed; no concerns or needs identifies at this time. OPEN SOAPER TENDER met with the patient and spouse at bedside. Sw role explained, Contact info and discharge planning checklist provided. Pt lives at home iwth her spouse in [place]. Pt is I at baseline, uses no DME, and is I with all ADLs. Pt continues to drive, has never had HH or Skilled rehab. Pt lives in a single story home with ramp access. Pt and spouse both express no concerns with discharge home but are receptive to d/c planning if needs arise. A: pt who is I at baseline and lives with her spouse. P: Anticipate pt to discharge home via POV once medically stable; OPEN SOAPER TENDER to continue to follow to assess for unmet d/c needs. KIERAN Chang Addendum: 10/31/16 at 1249 by IESHA MCKINNON SS Amended: Links added.
--- NOTE | 2016-10-31 15:43 | PROG NOTE ---
[address] [address] PROGRESS NOTE PATIENT: SENG NAVAS : 1945 MR#: [id number] ADMIT: 10/29/2016 JOB ID: [id number] DATE: 10/31/2016 CARDIOLOGY CONSULTATION PROGRESS NOTE -- FOLLOWUP INPATIENT VISIT: DATE OF EVALUATION: Monday, October 31, 2016. CONSULTING PHYSICIAN: Cardiology -- Chris Taylor MD. PROBLEMS: 1. CAD with ACS presenting with chest pain. 2. PCI of culprit proximal LAD. 3. Diabetes -- new diagnosis. 4. Hypertension. 5. Hypokalemia, on benazepril/hydrochlorothiazide. INTERIM SUMMARY AND HOSPITAL COURSE: Hospital day three. I saw this 71-year-old woman along with her in the PCU unit on Cardiology rounds today, Monday, October 31, 2016. She was admitted two days ago with new-onset severe chest and back discomfort but unremarkable ECG. Emergent coronary angiogram showed culprit proximal LAD lesion with MARY BETH 2-3 flow. She had intervention with DS of proximal LAD. Despite a good interventional result, she repeatedly developed a thrombus in the stent that ultimately cleared with Integrilin. Then, yesterday morning, she had similar severe recurrent symptoms. Emergent repeat coronary angiogram showed the stent to be intact. Over the past day she has done very well without recurrent symptoms, except for occasional thumping palpitations but no further chest discomfort. She has begun ambulating in the room. MEDICATIONS: We reviewed all this. Integrilin stopped 12 hours ago. She is on aspirin; now prasugrel; high-intensity statin; and metoprolol. She is on pantoprazole for stomach protection. She has had some intermittent insulin for high blood sugars. OBJECTIVE: PHYSICAL EXAMINATION: Extremities: The initial right groin access site has now developed ecchymosis after the initial hematoma; and as anticipated. The pulse is intact without hematoma, pulsatile mass, or bruit, and the distal dorsalis pedis pulse is strong. Overall impression is satisfactory. It is not much tender. ECG: She developed serial changes of her ischemia with anterior T-wave inversions. LABORATORY: Satisfactory including creatinine. Has remained stable at 0.67 after contrast. Note HbA1c is elevated in the range of diabetes at 7.1, and glucose has been in the hospital as high as 228. ASSESSMENT: I discussed the findings, impressions and management considerations with her and her ; as well as with the Hospitalist team, including Dr. Murillo and Dr. Huang including: Coronary artery disease with acute coronary syndrome and percutaneous coronary intervention of proximal left anterior descending: She has stabilized now despite the initial concerns for her emergent presentation and initial propensity for thrombus. The episode of recurrent symptoms yesterday morning did not correlate with any angiographic problem with the stents or coronaries. The nursing staff suggested the discomfort had started as abdominal gastrointestinal distress. Otherwise, she is doing well and re-ambulating, and it seems that discharge is approaching -- likely tomorrow morning. I had a long talk with the patient and her regarding the details of her presentation, her course and her current status. We discussed her medications including the critical importance of dual antiplatelet therapy and not to stop prasugrel for any reason without immediate cardiology consultation. We discussed her other medicines including the plan to treat her hypertension now with metoprolol and angiotensin-converting enzyme inhibitor but to contraindicate the hydrochlorothiazide component of her benazepril regimen that is twice caused severe hypokalemia. We discussed followup after the infarct including an activity prescription for moderate common sense progressive symptom-limited return to activities as tolerated. I strongly encouraged a rehabilitation program; they seem enthusiastic about doing that even from [facility]. We discussed early followup with primary care provider including the followup on her apparent diabetes; to consider endocrinology consultation; and early followup with Cardiology in the clinic. RECOMMENDATIONS: 1. Discontinue hydrochlorothiazide. 2. Add VIKY inhibitor now. 3. Anticipate discharge in a.m. after further re-ambulation in the hallways today.
--- NOTE | 2016-10-31 16:42 | PCM.PNMED ---
Subjective Date of Service Oct 31, 2016 Subjective Patient is a 71-year-old female with a history of hypertension who presented to [facility] complaining of sudden onset of substernal chest pressure with associated shortness of breath 5 minutes before going to the ED. She described the chest pressure as an 8 out of 10 substernal chest pressure radiating to her back, with some nausea but no diaphoresis. EKG at [facility] did not show definitive elevation and she received aspirin, nitroglycerin, heparin and was transferred transported to [facility] for intervention. She has no prior history of coronary disease. She denies leg swelling, shortness of breath , diaphoresis or nausea. No overnight events. Today. Patient had an uneventful evening. Ambulating on her own without difficulty. Patient remains asymptomatic. Her wounds are covered and without erythema or edema, however there is a significant ecchymotic region along the right inguinal ligament. Exam Vital Signs Vital Sign - Last Date Time Temp Pulse Resp B/P Pulse Ox O2 Delivery O2 Flow Rate FiO2 10/31/16 05:32 77 13 94 Nasal Cannula 10/31/16 03:53 36.9 119/61 1.00 Intake and Output 10/30/16 10/30/16 10/31/16 Cumulative From/Thru 15:00 23:00 07:00 10/29/16 20:09 - 10/31/16 03:55 Intake Total 2598 ml 128 ml 3783 ml Output Total 600 ml 1485 ml Balance 1998 ml 128 ml 2298 ml Intake Oral 800 ml 800 ml IV Total 1798 ml 128 ml 2983 ml Output Urine Total 600 ml 1485 ml # Bowel Movements 0 0 Exam General: Alert, Oriented X3, Cooperative, with acute distress and anxiety Head: Normocephalic, atraumatic. External ears normal. Eyes: PERRLA, EOMI. Anicteric sclerae. Mouth: Mouth normal, Mucous membranes moist/pink Neck: Neck supple with full range of motion. Chest& Lungs: Clear to auscultation bilaterally with no crackles, wheezes, or rhonchi. Cardiovascular: Regular rate/rhythm, Normal S1, Normal S2, No murmurs/rubs/ gallops Abdomen: Non-tender, Non-distended, No masses, Normoactive bowel tones, Soft Musculoskeletal: Normal range of motion Extremities: No cyanosis/clubbing/edema bilaterally. Hematoma at right groin catheter site. Neurological: Grossly neurologically intact. Normal speech IVs and Medications Medications Reviewed: Medications were reviewed in detail Lab and Diagnostics Result Diagram: 10/31/1632410/31/16324 Assessment & Plan Patient is a 71-year-old female with a history of hypertension who presented to [facility] complaining of sudden onset of substernal chest pressure with associated shortness of breath. Admitted for STEMI. Acute ST elevation VT. Present on admission. Resolved. - Pt presents with substernal chest pressure, ST elevation in leads V1-3, and elevated troponin. Cath revealed thrombotic lesions in the proximal and mid LAD , which were stented x3. - Continue Aspirin and Plavix, with Integrilin - Atorvastatin 80 mg qhs - Morphine and Nitro PRN - Monitor on telemetry - Monitor I/O and daily standing weights - Re-cath 10/30 due to increased pain following catheterzation this morning. - Will require Optimal medical therapy including VIKY, BB, Dual antiplatelet therapy, diuretic, and high intensity statin. Hypertension, acute on chronic. Present on admission. Improved. - BP 172/95 on admission. Improved to 131/98. - Continue to monitor - Continue VIKY, replace home benazapril with lisinopril while inpatient. Diabetes mellitus, present on admission, new diagnosis. acute. - Pt has no hx of DM. BG 176 at [facility]. 228 at [facility]. - A1c 7.1 - Humalog medium dose correctional scale. - Will recommend patient treat with diet and possibly metformin and follow up with PCP. Multiple nodular lesions. - CT chest/abd showed right renal lesion suspicious for early renal cell carcinoma, a 7 mm left adrenal nodule, and an indeterminate left upper lobe pulmonary nodule. - Outpatient urology consultation for right renal lesion - Follow up chest/abd CT in 6 months - Med Rec not complete. Reconcile in AM with pharmacy and complete. - Bowel regimen as needed - Antiemetic as needed Patient is admitted under inpatient status with expected length of stay greater than 2 midnights due to severity of presenting symptoms, risk of adverse event, and complexity of treatment plan. Plan for home tomorrow. Pain Evaluation: Adequate Pain Control Resuscitation Status: CPR: Attempt Resuscitation Time spent 40 minutes Attending Statement I interviewed and examined the patient on rounds today. She is having intermittent left precordial pain related to symptomatic premature beats. Also considerable anxiety. Plan to treat with reassurance unless symptoms worsen. I agree with the assessment and plan as stated above. ANNETTA CUEVAS DO Oct 31, 2016 06:12 Josef Huang MD Oct 31, 2016 17:09
--- NOTE | 2016-10-31 19:22 | NUR ---
P: cardiac, resp, I,E: Pt has been in SR with occ PVC's today. She denied any pain until approx 1600hrs this afternoon after she returned to her room from a short walk. She stated she leaned over her bed and felt her "heart pump" and that tightness or squeezing feeling was painful. she rated some of these beats as a 5-6 out of 10. She did have some PVC's at this time. EKG did not show obvious changes to me except her HR was increased from her prior one. Grinder Set Up Operator was notified and hospitalist came to see her in the room. NTG was given X1 with no effect on her cardiac pain, just gave her a headache. Dr. Taylor also came to see pt and reassured pt this pain was not likely to be occlusions. Only new order was lisinopril. Pt did go for another walk and had another similar but milder experience with pain from these "forceful beats" of her heart. She states she is pain free otherwise. Groin site on her right is extensively bruised without hematoma, left side is intact with a dressing no sign of hematoma or bruising. Pt is eupneic, and sats are high 90's on room air. she had a low grade temp this evening at 37.4. Pt has a supportive who is at the bedside.
[2016-10-31] MEDS: Nitroglycerin 50 mg/250 mL D5W 50,000 MCG in IV Premix 1 EACH IV SCH (20:17)
[2016-11-01 03:52] VITALS: BP 126/70; PULSE 89; RESP 18; O2SAT 96
[2016-11-01 05:52] VITALS: PULSE 103
--- NOTE | 2016-11-01 06:42 | NUR ---
Pain/Activity/Groin Sites Pt was able to walk through the hallways with for approximately 3 minutes at HS and the pt began to c/o chest pain and palpitations. Pt went back to bed and after 1.5 hours the pt's chest pain resolved on its own. Pt has had no further c/o chest pain. Pt's right groin site is severely bruised but is soft to the touch and only tender when pressed upon. The right groin site is open to air with no drainage. Pt's left groin site has a dressing that is CDI and the site is soft to the touch and only tender when pressed upon. There is bruising at the left groin site as well and with no drainage.
--- NOTE | 2016-11-01 06:46 | NUR ---
Education Pt and pt's would like information regarding activity and how to increase activity for the pt without having the chest pain and palpitations that the pt currently has with activity.
[2016-11-01] MEDS: Insulin LISPRO 300 Unit/3 mL Inj SUBQ SCH (08:00)
[2016-11-01 08:41] VITALS: BP 131/80; PULSE 89; RESP 16; O2SAT 97
[2016-11-01 08:47] VITALS: PULSE 86
[2016-11-01] MEDS ORDERED: HCTZ1TAB PO (08:49)
[2016-11-01] MEDS ORDERED: METO-369 PO (08:49)
[2016-11-01] MEDS ORDERED: LISI-571 PO (08:49)
[2016-11-01] MEDS ORDERED: ATOR40TA69 PO (08:49)
[2016-11-01] MEDS ORDERED: PRAS10TA5 PO (08:49)
[2016-11-01] MEDS ORDERED: ASPI-973 PO (08:49)
[2016-11-01] MEDS: Pantoprazole 40 mg ER24 Tablet PO SCH (08:54)
--- NOTE | 2016-11-01 08:55 | PCM.DIMED ---
Discharge Instructions Date of Service Nov 01, 2016 Dates of Hospitalization Oct 29, 2016 at 22:06 Discharge Diagnosis Discharge Diagnosis ST elevation myocardial infarction, anterior Hypertension Acute systolic congestive heart failure Symptomatic PVCs with chest pain Complex kidney cyst, requiring follow-up Left upper lobe 5 mm pulmonary nodule Type II diabetes mellitus, hemoglobin A1c 7.1% Medication Instructions Additional med instructions Several medication changes have been made and are listed below. Diet Discharge Diet: Heart Healthy, Diabetic Activity Discharge Activity: Limited until seen by PCP (avoid strenuous lifting, mild to moderate aerobic exercise is desirable) Call your provider Call your provider for: Chest pain Patient Instructions Patient Instructions Symptoms of heart pounding with chest discomfort are not due to angina or injury to your heart. Rest and relaxation may be the best therapy. Tylenol also may be helpful. Follow-up Provider: Claudine Ron MD Follow-up with PCP in: Other (call Dr. Nguyen for a posthospitalization follow-up visit) Josef Huang MD Nov 01, 2016 08:55
--- NOTE | 2016-11-01 12:00 | NUR ---
Social Work-discharge: Data:EMR reviewed. Pt is on day 3 of hospitalization for stemi per H&P. Pt is medically stable for discharge. Pt resides at home with her spouse and has been up independent in her room. No discharge needs identified. All updated and agreeable to plan. Assessment:Pt who is independent at baseline. Plan:Pt to discharge home today via POV. No discharge needs identified. All updated and agreeable to plan. KIERAN Caldwell
--- NOTE | 2016-11-01 12:07 | NUR ---
Discharge Pt discharged at 1205. Given instructions prior to discharge and confirmed understanding of these instructions. She denied questions. She was given education regarding prescription medication. She confirmed understanding as did her who was present at the bedside. Her prescriptions were electronically sent to [facility] in [place]- this was confirmed by phone. She was brought by wheelchair by staff to the exit where her picked her up and would be driving her home.
--- NOTE | 2016-11-01 18:44 | PCM.DC.MED ---
Discharge Summary Date of Service Nov 01, 2016 Dates of Hospitalization Date of Hospital Admission Oct 29, 2016 at 22:06 Date of Discharge: Nov 01, 2016 Providers: Admitting Physician: Buster Gamez MD Primary Care Physician: Nopoumar Attending Physician: Marnie Park MD Diagnosis at Time of Discharge Diagnosis at Time of Discharge ST elevation myocardial infarction, anterior Hypertension Acute systolic congestive heart failure Symptomatic PVCs with chest pain Complex kidney cyst, requiring follow-up Left upper lobe 5 mm pulmonary nodule Type II diabetes mellitus, hemoglobin A1c 7.1% Consultations Cardiology, Dr. Chris Taylor Procedures XRay, CTs & MRIs PROCEDURE: CT ANG CHEST/ABD W/WO CONTRAST ([id number]) IMPRESSION: Complex cystic versus solid right renal lesion, suspicious for early renal cell carcinoma until proven otherwise. Recommend nonemergent urological consultation , and continued surveillance with CT. A dedicated renal protocol contrast- enhanced CT or MRI could be performed in the nonemergent setting 7 mm left adrenal nodule which is too small to characterize. This should also be followed up with continued CT surveillance, and if reaches 1 cm in size consider dedicated adrenal protocol MRI for further assessment. Indeterminate left upper lobe pulmonary nodule. Recommend followup with noncontrast chest CT in 6 months (based on size criteria) No evidence of aortic dissection Hepatic steatosis. No acute abnormality. Bibasilar scarring/atelectasis. Dictated by: Ruddy Briggs M.D. on 10/29/2016 at 21:06 . Cardiac Echo Impression Echocardiogram Report Name: SENG NAVAS Study Date: 10/05 Interpretation Summary There is no thrombus. The ejection fraction is estimated to be 35-40%. Apical akinesis with a hyperdynamic mid cavity of the left ventricle. There is no significant valvular heart disease. . Brief History History of Present Illness (per admission note): Patient is a 71-year-old female with a history of hypertension who presented to [facility] complaining of sudden onset of substernal chest pressure with associated shortness of breath 5 minutes before going to the ED. She described the chest pressure as an 8 out of 10 substernal chest pressure radiating to her back, with some nausea but no diaphoresis. EKG at [facility] did not show definitive elevation and she received aspirin, nitroglycerin, heparin and was transferred transported to [facility] for intervention. She has no prior history of coronary disease. She denies leg swelling, shortness of breath, diaphoresis or nausea. At [facility], CBC was unremarkable, K was 2.9, Cr 0.9, glucose 176, troponin was negative. In the [facility] ED, HR was 112, BP was 172/95, O2 96 on room air. Repeat K was 3.7, repeat troponin was 0.312. EKG showed ST elevation in V1 - V3. CXR was negative. CT chest/abd showed a 7 mm left adrenal nodule, indeterminate left upper lobe pulmonary nodule, no evidence of aortic dissection, hepatic steatosis. She continued to complain of significant ongoing substernal chest pressure during the transfer and in the [facility] ED, and was brought to the labor mediator. Drug-eluting stents were placed in the proximal and mid LAD. Hospital Course Acute ST elevation IN. Present on admission. Resolved. Pt presents with substernal chest pressure, ST elevation in leads V1-3, and elevated troponin. Cath revealed thrombotic lesions in the proximal and mid LAD, which were stented x3. - Received Integrilin, and Prasugrel. Re-cathed 10/30 due to increased pain following catheterzation, but stents were patent despite prolonged chest discomfort. - Atorvastatin 80 mg qhs - Beta thelma, VIKY inhibitor and diuretic - Prasugrel and low-dose aspirin Hypertension, acute on chronic. Present on admission. Improved. History of hypokalemia on HCTZ, worrisome in light of coronary ischemia and decreased LVEF. BP 172/95 on admission. Improved to 131/98. - Discontinued benazepril and hydrochlorothiazide combination pill - Continue VIKY as lisinopril monotherapy - She needs diuretic diet due to high filling pressures with LV dysfunction; replace home benazapril with potassium neutral spironolactone plus hydrochlorothiazide (Aldactazide). Complex renal cyst lesion. - CT chest/abd showed right renal lesion suspicious for early renal cell carcinoma, - Outpatient urology consultation for right renal lesion recommended Other problems: Diabetes mellitus, present on admission, new diagnosis. acute. - A1c 7.1 -Continue current care; follow-up with PCP Pulmonary left upper lobe pulmonary nodule. Nonsmoker - Follow up chest/abd CT in 6 months Exam Vital Signs (Last) Date Time Temp Pulse Resp B/P Pulse Ox O2 Delivery O2 Flow Rate FiO2 11/01/16 08:47 86 11/01/16 08:41 16 131/80 97 Room Air 11/01/16 03:52 37.0 1.00 Exam General: Alert, Oriented X3, Cooperative Eyes: EOMI. Anicteric sclerae. Mouth: Mouth normal, Mucous membranes moist/pink Neck: Neck supple Chest& Lungs: Clear to auscultation bilaterally with no crackles, wheezes, or rhonchi. Cardiovascular: Regular rate/rhythm, Normal S1, Normal S2, No murmurs/rubs/ gallops Abdomen: Non-tender, Non-distended, No masses, Normoactive bowel tones, Soft Musculoskeletal: Normal range of motion Extremities: No cyanosis/clubbing/edema bilaterally. Hematoma at right groin catheter site. Neurological: Grossly neurologically intact. Normal speech Test 10/29/16 20:54 10/30/16 01:05 10/30/16 03:55 10/30/16 08:55 D-Dimer < 0.50mg/L FEU (<0.50) Magnesium Level 1.9mg/dL (1.6-2.6) Urine Color Red (YELLOW) Urine Appearance Slightly cloudy Urine pH 7.0 (5.0-8.0) Urine Specific Neptune 1.005 (1.003-1.035) Urine Protein Negativemg/dL (NEG,TRACE) Urine Glucose (UA) 100mg/dL (NEGATIVE) Urine Ketones Negativemg/dL (NEGATIVE) Urine Occult Blood Large (NEGATIVE) Urine Nitrite Negative (NEGATIVE) Urine Bilirubin Negative (NEGATIVE) Urine Urobilinogen Normalmg/dL (NORMAL) Urine Leukocyte Esterase Negative (NEGATIVE) Urine RBC 11-50/hpf (0-2) Urine WBC 0-5/hpf (0-5) Urine Epithelial Cells Few/hpf (NONE-MOD) Urine Crystals None seen (NONE SEEN) Urine Bacteria None/hpf (NONE-FEW) Urine Hyaline Casts None/lpf (NONE) Urine Granular Casts None seen (NONE SEEN) Urine Waxy Casts None seen (NONE SEEN) Urine Red Blood Cell Casts None seen (NONE SEEN) Urine White Blood Cell Casts None seen (NONE SEEN) Urine Mucus None seen (None Seen) Urine Trichomonas None seen (NONE SEEN) Urine Yeast None (NONE SEEN) Urinalysis Comment None Urine Culture Reflexed Not indicated Neutrophils (%) (Auto) 89.0% (40-74) Lymphocytes (%) (Auto) 6.1% (14-46) Monocytes (%) (Auto) 4.5% (4-12) Eosinophils (%) (Auto) 0% (0-5) Basophils (%) (Auto) 0.1% (0-3) Hemoglobin A1c 7.1% (4.8-5.6) Total Creatine Kinase 97U/L (21-215) Creatine Kinase MB 12.3ng/mL (0.0-5.3) Creatine Kinase MB % 12.7% (0.0-5.0) Troponin T 0.609ug/L (0.0-0.011) Pro-B-Type Natriuretic Peptide 793.5pg/mL (0-301) Hold Sunspot Top Tube Received (Received) Test 10/31/16 03:25 11/01/16 04:45 White Blood Count 9.0th/mm3 (3.8-10.1) Red Blood Count 4.13mil/mm3 (3.90-5.20) Hemoglobin 11.5g/dL (12.0-15.6) Hematocrit 35.5% (35.0-46.0) Mean Corpuscular Volume 86.0fL (81-100) Mean Corpuscular Hemoglobin 27.8pg (27.0-35.0) Mean Corpuscular Hemoglobin Concent 32.4% (32.0-37.0) Red Cell Distribution Width 13.9% (12.3-15.4) Platelet Count 160bil/L (150-400) Sodium Level 143mEq/L (134-144) Potassium Level 3.6mEq/L (3.5-5.2) Chloride Level 107mEq/L (97-108) Carbon Dioxide Level 25mmol/L (18-29) Blood Urea Nitrogen 10mg/dL (8-27) Creatinine 0.63mg/dL (0.57-1.00) Estimat Glomerular Filtration Rate 133mL/min (>59) Glucose Level 140mg/dL (60-99) Calcium Level 7.9mg/dL (8.5-10.1) Discharge Medications Discharge Medications Aspirin (Aspirin) 81 Mg Tablet 81 MG PO DAILY Prescribed by: MARNIE PARK MD Atorvastatin Calcium (Atorvastatin Calcium) 40 Mg Tablet 80 MG PO HS Prescribed by: MARNIE PARK MD Cholecalciferol (Vitamin D3) (Vitamin D3) 2,000 Unit Tablet 2,000 UNIT PO DAILY (Reported) Lactobacillus Combo No.11 (Probiotic) 1 Each Cap.sprink 1 EACH PO DAILY ( Reported) Lisinopril (Lisinopril) 5 Mg Tablet 5 MG PO DAILY Prescribed by: MARNIE PARK MD Metoprolol Succinate ER (Metoprolol Succinate ER) 50 Mg Tab.er.24h 50 MG PO DAILY Prescribed by: MARNIE PARK MD [place]-3 Fatty Acids (Fish Oil) 500 Mg Capsule.dr 500 MG PO DAILY (Reported) Prasugrel HCl (Effient) 10 Mg Tablet 10 MG PO DAILY Prescribed by: MARNIE PARK MD Spironolactone/HCTZ 25-25 mg (Aldactazide 25-25 mg) 1 Tab Tablet 1 TABLET PO DAILY Prescribed by: MRANIE PARK MD Additional med instructions Several medication changes have been made and are listed below. Followup Plan Disposition: Home Follow-up plan The patient requested follow-up with Claudine Ron who is her 's stud setter. Discharge Diet: Heart Healthy, Diabetic Discharge Activity: Limited until seen by PCP (avoid strenuous lifting, mild to moderate aerobic exercise is desirable) Patient Instructions Symptoms of heart pounding with chest discomfort are not due to angina or injury to your heart. Rest and relaxation may be the best therapy. Tylenol also may be helpful. Follow-up Provider: Claudine Ron MD Follow-up with PCP in: Other (call Dr. Nguyen for a posthospitalization follow-up visit) Time spent 35 minutes copies to: Claudine Ron MD; Chris Taylor MD, Jeffrey W MD Nov 01, 2016 08:56
--- NOTE | 2016-12-24 14:11 | CS94 ---
[address] [address] DIAGNOSTIC CARDIAC CATHETERIZATION PATIENT: SENG NAVAS : 1945 MR#: [id number] ADMIT: 10/29/2016 JOB ID: [id number] PROCEDURE NOTE -- CARDIAC CATHETERIZATION LABORATORY: SERVICE DATE: Saturday, October 29, 2016 MARBLE FINISHER: Chris Taylor MD PROCEDURES: 1. Coronary angiogram--urgent. 2. Left heart catheterization (LHC): Pressure measurement. 3. Percutaneous coronary intervention (PCI): a. Proximal LAD--Xience Alpine CARMEN (drug-eluting stents)--Xience 2.5 x 23 mm; then Xience 3.0 x 12 mm overlapping proximally; then Xience 3.0 x 12 mm deployed overlapping proximally. b. IVUS--adjunctive intravascular ultrasound of capital letters LAD. CLINICAL DATA: This 71-year-old woman who has no prior history of known heart disease presents to the cardiac catheterization laboratory urgently with acute coronary syndrome including ongoing chest pain and ECG not definite for STEMI. She had presented to an outside emergency department within a short time of developing sudden onset chest pain; and was transferred to the [facility] Emergency Department. Because of back pain and nondiagnostic ECG as well as severe hypertension with SBP above 200, CT chest was done; and did not show aortic dissection. Initial blood pressure 196/115. Initial ECG shows no definite ST elevation and very subtle possible ST straightening in anterior leads and no definite reciprocal ST depression and is not outside the limits of early repolarization. Initial troponin 0.312. PROCEDURAL DETAILS: I was in the emergency department to evaluate her on her arrival. I discussed the findings, impressions and management considerations with her including the recommendation to proceed urgently to coronary angiogram--especially in view of her ongoing chest discomfort--for definitive diagnosis and to guide treatment decisions, including medical therapy; PCI; or coronary bypass surgery if needed. We discussed the procedure including possible risks and complications. We discussed bleeding, infection, and blood clots; as well as injury to nerve, artery, vein or kidney; and also arrhythmia, drug reaction; or others. We discussed treatment as needed including transfusion, pacemaker or surgery. We discussed more serious complications that are possible including stroke, heart attack, cardiac arrest, and emergency surgery including transfer for coronary bypass surgery. After discussion and questions, she signed informed consent to proceed. She was taken to the catheterization laboratory where she was prepped sterilely and draped. CORONARY ANGIOGRAM: Arterial access was obtained without difficulty in the right common femoral artery using fluoroscopic localization over the femoral head; with local lidocaine anesthesia; and modified Seldinger technique to insert a 10 cm, 6-American side-arm sheath. Catheters were advanced and exchanged over a long 0.035 inch J tipped guidewire. The left coronary artery was engaged with a 6-American JL-4 diagnostic catheter; and right coronary artery was imaged with a 6-American JR-4 catheter. LHC: At the end of the procedure, a 6-American pigtail catheter was advanced across the aortic valve into the left ventricle; and pressures were measured including LVED and pullback. No LV angiogram done. PCI of proximal LAD: The diagnostic images were reviewed. Decision was made to proceed with emergent PCI of the culprit tubular subtotal 95% proximal LAD lesion (MARY BETH 2-3 flow). For the intervention, the patient had previously received ASA; then heparin IV bolus was used for procedural anticoagulation to achieve therapeutic ACT; and a loading dose of Plavix 600 mg p.o. was given. For the intervention, a 6-American JL-4 guide catheter was used. BMW wire--0.014 inches x 190 cm--was advanced across the treatment site without difficulty and placed in the distal LAD. PREDILATATION: A Trek RX balloon--2.5 x 15 mm-was advanced to the treatment site and inflated twice to maximum 8 atmospheres. The artery was opened and flow was improved. The patient became chest pain free during the procedure. STENT: A Xience Alpine CARMEN--2.5 x 23 mm was advanced across the lesion and deployed at 16 atmospheres. POSTDILATATION: The stent was post dilated with a noncompliant Trek NC balloon--2.75 x 12 mm--inflated twice within the stent to 18 atmospheres. NTG IC was used during the procedure. There was initially an excellent angiographic result with MARY BETH-3 flow restored and no residual lesion. However on followup angiographic monitoring, there appeared to be development of a filling defect consistent with thrombus within the proximal end of the stent. This persisted and was treated with a second Xience stent--3.0 x 12 mm--deployed overlapping the site of apparent thrombus in the initial stent at the proximal stent edge. This was deployed at 18 atmospheres. Subsequently there appeared to be an additional thrombus within the proximal edge of the stented segment. IVUS: A [employer] Eye IVUS system was introduced distal to the stent and withdrawn with IVUS imaging. There was diffuse disease distal to the stent but the stented segment appeared to have no mechanical problem accounting for the thrombus. There is moderate narrowing in the ostial LAD. A third Xience CARMEN-- 3.0 x 12 mm was deployed proximally overlapping the second stent at 16 atmospheres. There was an excellent angiographic result. However there then appeared to be filling defect suggestive of thrombus in the distal end of the stented segment. Integrilin was started with a two bolus technique including the first bolus was given intracoronary. The stented segment was monitored for a period of time and showed resolution of the thrombus. The patient was stable and chest-pain free. The final completion angiogram showed an excellent final angiographic result with no residual lesion; MARY BETH-3 flow restored; and no evident angiographic complication. Patient tolerated procedure well without difficulty. No complication. At the end of the procedure, the patient was transferred in improved stable and chest-pain free from the catheterization laboratory to the CCU unit for ongoing care. A side-arm sheath angiogram shows adequate access in the RFA for a closure device; and hemostasis was obtained with a 6-American Perclose suture. I discussed the procedure, findings, and management considerations with the patient (later with her ); and with Cardiology, and with the primary hospitalist team. FINDINGS: 1. LMCA: Intact, short. There is moderate 30% to 40% distal left main coronary artery plaquing. 2. LAD: 95% tubular subtotal proximal culprit lesion with MARY BETH 2-3 flow noted. 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 There is moderate 40% to 50% ostial LAD narrowing also noted. 3. LCX: Intact. The left circumflex coronary artery consists of a single very large branching OM vessel that reaches the apex in this patient with short LAD. 4. RCA: Dominant. Intact. The RCA is a large vessel with RPDA and RPLV both reaching the apex. No [id number] collaterals to the LAD. 5. LHC: LVED 33; and no systolic gradient on pullback across the aortic valve. CONCLUSION: 1. PCI--Xience CARMEN of proximal LAD culprit lesion. 2. ACS--intermediate coronary syndrome with ongoing chest pain but not ST-elevation. 3. Coronary artery disease (CAD)--single vessel CAD of proximal LAD. 4. Elevated LVED. RECOMMENDATIONS: 1. ECASA-indefinitely. 2. Plavix--plan one year if well tolerated including ongoing Cardiology followup. I discussed with the patient and her the critical importance of mandatory aspirin and Plavix; and not to miss Plavix for any reason without immediate Cardiology consultation. 3. Echocardiogram. 4. Admit to CCU unit to hospitalist team--including for careful ongoing monitoring for Integrilin; and for clinical sequelae in this patient who appears to have thrombotic tendency. 5. OMT--guideline directed optimal medical therapy for underlying CAD risk factors; and for CAD.
== END 2016-11-01 12:00 | disposition home or self-care (01) | DRG 246 ==
LOC: SED 20:02 → SPI 21:03 → PCC 22:06
PROVIDERS: ADMIT Hospitalist; ATTEND Hospitalist
PROC: 027036Z Dilation of Coronary Artery, One Artery with Three Drug-eluting Intraluminal Devices, Percutaneous Approach (ICD-10-PCS; principal; 2016-10-29)
PROC: B240ZZ3 Ultrasonography of Single Coronary Artery, Intravascular (ICD-10-PCS; 2016-10-29)
PROC: B2111ZZ Fluoroscopy of Multiple Coronary Arteries using Low Osmolar Contrast (ICD-10-PCS; 2016-10-29)
PROC: 4A023N7 Measurement of Cardiac Sampling and Pressure, Left Heart, Percutaneous Approach (ICD-10-PCS; 2016-10-29)
PROC: B2101ZZ Fluoroscopy of Single Coronary Artery using Low Osmolar Contrast (ICD-10-PCS; 2016-10-30)
PROC: 4A023N7 Measurement of Cardiac Sampling and Pressure, Left Heart, Percutaneous Approach (ICD-10-PCS; 2016-10-30)
DX: I21.3 ST elevation (STEMI) myocardial infarction of unspecified site (principal); I50.21 Acute systolic (congestive) heart failure; T82.817A Embolism due to cardiac prosthetic devices, implants and grafts, initial encounter; I10 Essential (primary) hypertension; R73.9 Hyperglycemia, unspecified; I25.10 Atherosclerotic heart disease of native coronary artery without angina pectoris